=== PATIENT | male | born 1980 | race Caucasian/White ===

== ENCOUNTER 2023-11-20 03:14 | Emergency (ER) | payer SELFPAY ==
[~2023-11-20] VITALS: Ht 175.3 cm; Wt 86.0 kg
[2023-11-20 03:40] VITALS: BP 112/63; PULSE 74; RESP 12; TEMP 97.9; O2SAT 100
[2023-11-20] MEDS ORDERED: IBUP-2029 MT (05:20)
== END 2023-11-20 05:55 | disposition home or self-care (01) ==
LOC: ER 03:14
DX: S09.90XA Unspecified injury of head, initial encounter (principal); S16.1XXA Strain of muscle, fascia and tendon at neck level, initial encounter; V49.49XA Driver injured in collision with other motor vehicles in traffic accident, initial encounter; Y93.89 Activity, other specified; Y92.89 Other specified places as the place of occurrence of the external cause; Y99.8 Other external cause status
CPT/HCPCS: 99291